=== PATIENT | male | born 1985 | race Caucasian/White ===

== ENCOUNTER 2025-01-05 07:20 | Emergency (ER) | payer OTHER, SELFPAY ==
[2025-01-05 07:29] VITALS: BP 141/96; BP 168/98; PULSE 102; PULSE 88; RESP 16; TEMP 36.6; O2SAT 96; BMI 35.9
--- NOTE | 2025-01-05 07:58 | ECG_ITS ---
Test Reason : palpitations Blood Pressure : */* mmHG Vent. Rate : 80 BPM Atrial Rate : 80 BPM P-R Int : 144 ms QRS Dur : 86 ms QT Int : 362 ms P-R-T Axes : 52 37 30 degrees QTcB Int : 417 ms Normal sinus rhythm Normal ECG No previous ECGs available Referred By: Darek Wallace Electronically Signed By: BRYAN STUART
--- OUTSIDE RECORDS SUMMARY | 2025-01-05 08:01 | XMS_ITS | Encounter Summary ---
Author Organization [facility] Address [address] [place] [address] Care Team Providers Care Well Drill Operator Name Role Phone Sherwin Ledbetter MD Primary Care Provider Reason for Visit * Reason Onset Date Comments Referral 12/29/2024 Encounter Details Date Type Department Care Team (Late st Contact Info) Description 12/29/2024 Telephone Gastroenterology - [place] [address] [place] [address] Lena Pritchard MA Social History Tobacco Use Types Packs/Day Years Used Date Smoking Tobacco: Former Cigarettes Smokeless Tobacco: Former Alcohol Use Standard Drinks/Week Comments Yes 5 (1 standard drink = 0.6 oz pur e alcohol) occ Housing Instability Answer Date Recorde d Are you worried that in the next 2 months you may not have stable housing? No 11/02/2024 Food Access & Nutrition Answer Date Rec orded Do you have access to a vari ety of food including fruits and vegetables? Yes 11/02/2024 Access to Healthcare Answer Date Record ed Within the last 3 months, ho w many times did you visit the emergency department for your medical care? 0 11/02/2024 Health Literacy Answer Date Recorded How often do you need to hav e someone help you when you read instructions, pamphlets, or other written material from your doctor or pharmacy? Never 11/02/2024 Caregiver: How often do you need to have someone help you when you read instructions, pamphlets, or other written material from your doctor or pharmacy? Not on file 11/02/2024 Financial Risk Answer Date Recorded How hard is it for you to pa y for the very basics like food, housing, medical care, and air conditioning / heating? Not very hard 11/02/2024 Transportation Answer Date Recorded Has the lack of transportati on kept you from meetings, work, or from getting things needed for daily living? No Has the lack of transportati on kept you from medical appointments or from getting medications? No 11/02/2024 Social Isolation Answer Date Recorded How often do you feel lonely or isolated from th ose around you? Never 11/02/2024 Food Risk Answer Date Recorded Within the past 12 months we worried whether our food would run out before we got money to buy more. Never true 11/02/2024 Within the past 12 months th e food we bought just didn't last and we didn't have money to get more. Never true 11/02/2024 Dependent Care Answer Date Recorded Do you need help finding or paying for care for your loved ones. For example, registered nurse maternal child or elderly care for an older adult? No 11/02/2024 Education Answer Date Recorded Do you think completing more education or training, like finishing a GED, going to college, or learning a trade, would be helpful for you? No 11/02/2024 Employment and Income Answer Date Recor ded During the last four weeks, have you been actively looking for work? No 11/02/2024 Living Situation Answer Date Recorded What is your living situation? 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 I offered pt Fang's 01/10 slot, pt stated his pcp prescribed him some medication and he wants to see if it would work first, he will call back to scheduleif it does not work. * Lena Pritchard MA - 01/01/2025 8:15 AM EDT Noted. Will update referral * ANTOINE Smith - 12/30/2024 3:00 PM EDT Ideally yes would be good to see him sooner as he has a hx of treatment failure * Lena Pritchard MA - 12/29/2024 3:33 PM EDT Hi, We received a request to schedule this patient for h pylori urgently but it appears you are treating him for it, he is schedule to see our office in May, does he need to be seen prior to May since you are already treating him? documented in this encounter Plan of Treatment Upcoming Encounters Date Type Department Care Team (Late st Contact Info) Description 05/11/2025 11:20 AM EST Consult Gastroenterology - [place] [address] [phone] Fang Alford NP [address] [facility] [address] [place] [address] 11/06/2025 3:00 PM EDT Office Visit Adult Medicine [address] [phone] Ronald Matthews PA [address] [place] [address] documented as of this encounter Visit Diagnoses Not on filedocumented in this encounter Additional Health Concerns Assessment Noted Time PHQ-9 Depression Total Score: 1 11/03/19 25 4:24 PM EDT documented as of this encounter Care Teams Well Drill Operator Relationship Specialty Start Date End Date Sherwin Ledbetter MD [address] [place] [address] PCP - General 07/13/23 documented as of this encounter
--- OUTSIDE RECORDS SUMMARY | 2025-01-05 08:01 | XMS_ITS | Clinical Summary ---
Author Organization [facility] [address] [facility] Address [address] [place] [address] Phone Care Team Providers Care Turn Supervisor Name Role Phone Sherwin Ledbetter MD Primary Care Provider Allergies No known active allergies Medications methadone (DOLOPHINE) 10 mg/5 mL solution 57.5 mL (115 mg total). 04/24/2021 Active tirzepatide, weight loss, (Zepbound) 7.5 mg/0.5 mL injectionIndica tions:H. pylori infection Inject 0.5 mL (7.5 mg total) under the skin every 7 (seven) days. 6 mL 3 11/21/2024 Active bismuth-metroNI DAZOLE-tetracyc line (Pylera) 140-125-125 mg per capsule Take 3 capsules by mouth 4 (four) times a day (before meals and nightly) for 14 days. Follow each dose with 8 oz of water. 168 capsule 12/29/2024 01/13/20 25 Active omeprazole (PriLOSEC) [address] capsule Take 1 capsule (20 mg total) by mouth 2 (two) times a day. Do not crush or chew. 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 Heroin use 01/02/2015 Opiate abuse, episodic ([facility] V24, [facility] V28 ) 01/02/2015 Panic disorder 01/02/2015 Encounters Date Type Department Care Team Description 12/29/2024 Telephone Gastroenterology - [place] [address] [place] [address] Lena Pritchard [place] 12/27/2024 Telephone Adult Medicine [address] [phone] Sherwin Ledbetter MD 11/03/2024 3:00 PM EDT Office Visit Adult Medicine [address] [phone] Ronald Matthews PA Routine general medical examination at a health care facility (Primary Dx); Abdominal pain, unspecified abdominal location; Low testosterone; Anxiety; Methadone use; Vitamin D deficiency; Panic disorder; Elevated total protein 10/10/2024 Telephone Adult Medicine [address] [phone] Sherwin Ledbetter MD from Last 3 Months Immunizations Immunization Administration Dates Next Due Tdap Tetanus diptheria acell ular pertussis (Boostrix; Adacel) 7yo and older 10/04/2024,08/03/2012 Surgical History Surgery Date Site/Laterality Comments WISDOM TOOTH EXTRACTION PROCEDURE: HISTORICAL WISDOM TEETH EXTRACTION Medical History Medical History Date Comments Opiate abuse, episodic ([facility] V24, [facility] V28) 01/02/2015 DX:Opiate abuse, episodic ([facility]) 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 For example, child care worker or elderly care for an older adult? 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 Not on file No t on file Obstetrics History Last Filed Vital Signs Vital Sign Reading Time Taken Comments Blood Pressure 113/75 11/03/2024 2:48 PM EDT Pulse 73 11/03/2024 2:48 PM EDT Temperature 36.3 C (97.4 F) 11/03/2024 2:48 PM EDT Respiratory Rate 16 11/03/2024 2:48 PM EDT Oxygen Saturation 96% 11/03/2024 2:48 PM EDT Inhaled Oxygen Concentration - - Weight 107 kg (235 lb) 11/03/2024 2:48 PM EDT Height 171.5 cm (5' 7.5 ) 11/03/2024 2:48 PM EDT Body Mass Index 36.26 11/03/2024 2:48 PM EDT Plan of Treatment Upcoming Encounters Date Type Department Care Team (Late st Contact Info) Description 05/11/2025 11:20 AM EST Consult Gastroenterology - [place] [address] [phone] Fang Alford NP 175 [facility] [address] [place] [address] 11/06/2025 3:00 PM EDT Office Visit Adult Medicine [address] [phone] Ronald Matthews PA [address] [place] [phone] Health Maintenance Due Date Last Done Comments Hepatitis A Vaccines (1 of 2 - Risk 2-dose series) 11/18/2002 Hepatitis B Vaccines (1 of 3 - 19+ 3-dose series) 11/18/2002 HPV Vaccines (1 - 3-dose SCD M series) 11/18/2010 COVID-19 Vaccine (2 - 2024-2 6 season) 2024 11/04/2020 Influenza Vaccine (#1) 2024 Social Influencers of Health Screening 11/02/2025 11/02/2024 Cholesterol Screening (Lipid Panel) 10/04/2029 10/04/2024 DTaP,Tdap,and Td Vaccines (4 - Td or Tdap) 10/04/2034 10/04/2024, 08/20/2012, 08/03/2012 RSV Immunization Adult Patients (1 - 1-dose 75+ series) 11/18/2058 HIV Screening Completed 10/04/2024 Hepatitis C Screening Completed 10/04/2024 Depression Screening Completed 11/02/2024 HIB Vaccines Aged Out No longer eligi ble based on patient's age to complete this topic IPV Vaccines Aged Out No longer eligi ble based on patient's age to complete this topic MMR Vaccines Aged Out No longer eligi ble based on patient's age to complete this topic Meningococcal ACWY Vaccine Aged Out N o longer eligible based on patient's age to complete this topic Meningococcal B Vaccine Aged Out No l onger eligible based on patient's age to complete this topic Pneumococcal Vaccine: Pediatrics (0 to 5 Years) and At-Risk Patients (6 to 49 Years) Aged Out No longer eligible b ased on patient's age to complete this topic RSV Immunization Patients Under 20 months Aged Out No longer eligible b ased on patient's age to complete this topic Varicella Vaccines Aged Out No longer eligible based on patient's age to complete this topic Procedures Procedure Name Priority Date/Time Associated Diagnosis Comments DC PROTEIN ELECTROPHORETIC FRACTIONATION & QUANTITATION SERUM Routine 12/28/2024 1:49 PM EDT Elevated total protein PROTEIN, TOTAL Routine 12/28/2024 1:49 PM EDT Elevated total protein CBC WITH AUTO DIFFERENTIAL Routine 12/28/2024 1:49 PM EDT Routine general medical examination at a health care facility Abdominal pain, unspecified abdominal location Low testosterone KAPPA-LAMBDA QUANTITATIVE FREE LIGHT CHAINS Routine 12/28/2024 1:49 PM EDT Elevated total protein PROTEIN ELECTROPHORESIS, SERUM Routine 12/28/2024 1:49 PM EDT Elevated total protein VITAMIN D 25 HYDROXY Routine 12/28/2024 1:49 PM EDT Vitamin D deficiency CBC AND DIFFERENTIAL Routine 12/28/2024 1:49 PM EDT Routine general medical examination at a health care facility Abdominal pain, unspecified abdominal location Low testosterone COMPREHENSIVE METABOLIC PANEL Routine 12/28/2024 1:49 PM EDT Routine general medical examination at a health care facility Abdominal pain, unspecified abdominal location Low testosterone IMMUNOGLOBULINS IGG, IGA, IGM Routine 12/28/2024 1:49 PM EDT Routine general medical examination at a [facility] care facility Abdominal pain, unspecified abdominal location Low testosterone FOLLICLE STIMULATING HORMONE Routine 12/28/2024 1:49 PM EDT Routine general medical examination at a [facility] medical [facility] care facility Abdominal pain, unspecified abdominal location Low testosterone LIPASE Routine 12/28/2024 1:49 PM EDT Routine general medical examination at a [facility] medical [facility] care facility Abdominal pain, unspecified abdominal location Low testosterone HELICOBACTER PYLORI BREATH TEST Routine 12/28/2024 1:49 PM EDT H. pylori infection DC PROTEIN ELECTROPHORETIC FRACTIONATION & QUANTITATION SERUM Routine 11/03/2024 4:07 PM EDT Routine general medical examination at a health care facility Abdominal pain, unspecified abdominal location Low testosterone DC IMMUNOFIXATION ELECTROPHORESIS SERUM Routine 11/03/2024 4:07 PM EDT Routine general medical examination at a health care facility Abdominal pain, unspecified abdominal location Low testosterone PROTEIN, TOTAL Routine 11/03/2024 4:07 PM EDT Routine general medical examination at a health care facility Abdominal pain, unspecified abdominal location Low testosterone IMMUNOFIXATION ELECTROPHORESIS Routine 11/03/2024 4:07 PM EDT Routine general medical examination at a health care facility Abdominal pain, unspecified abdominal location Low testosterone IMMUNOFIXATION ELECTROPHORESIS Routine 11/03/2024 4:07 PM EDT Routine general medical examination at a health care facility Abdominal pain, unspecified abdominal location Low testosterone PROTEIN ELECTROPHORESIS, SERUM Routine 11/03/2024 4:07 PM EDT Routine general medical examination at a health care facility Abdominal pain, unspecified abdominal location Low testosterone HELICOBACTER PYLORI BREATH TEST Routine 11/03/2024 4:07 PM EDT Routine general medical examination at a health care facility Abdominal pain, unspecified abdominal location Low testosterone HEPATITIS C ANTIBODY Routine 10/04/2024 1:09 PM EDT Need for hepatitis C screening test HIV 1, 2 ANTIBODY, P24 ANTIGEN WITH REFLEX TO DIFFERENTIATION Routine 10/04/2024 1:09 PM EDT Screening for HIV (human immunodeficiency virus) LIPID PANEL WITH REFLEX TO DIRECT LDL Routine 10/04/2024 1:09 PM EDT Screening for deficiency anemia from Last 3 Months or Most Recently Relevant to Health Maintenance Results * PATHOLOGIST REVIEW PROTEIN ELECTROPHORESIS (12/28/2024 1:49 PM EDT) Only the most recent of2 resultswithin the time period is included. Pathologist Interpretation Rashida Lindo MD 01/01/2025 2:44 PM EDT [facility] Blood Venous blood specimen / Unknown Venipuncture / Unknown 12/28/2024 1:49 PM EDT 12/28/2024 1:49 PM EDT us Claudia Davon PA LAB BLOOD ORDERABLES Final Resul t [facility] [address] [place] [address], [place] [phone] * [place]-lambda free light chains, quantitative (12/28/2024 1:49 PM EDT) [place] Free Light Chain 1.78 0.33 - 1.94 mg/dL 01/01/2025 12:36 PM EDT [facility] Lambda Free Light Chain 1.98 0.57 - 2.63 mg/dL 01/01/2025 12:36 PM EDT [facility] [place]/Lambda FLC Ratio 0.90 0.26 - 1.65 01/01/2025 12:36 PM EDT [facility] Comment: Test performed at [facility], [address], [place], [place] [id number] Mary Echavarria MD, PhD - Stick Welder Blood Venous blood specimen / Unknown Venipuncture / Unknown 12/28/2024 1:49 PM EDT 12/28/2024 1:49 PM EDT us Claudia Davon SCHULTZ LAB BLOOD ORDERABLES Final Resul t [facility] [address] [place] [address] * CBC auto differential (12/28/2024 1:49 PM EDT) Pathologist [facility] WBC 6.8 4.8 - 10.8 K/mcL LAB HEMETOLOGY METHOD 12/28/2024 4:47 PM EDT [facility] RBC 4.50 4.50 - 5.50 M/mcL LAB HEMETOLOGY METHOD 12/28/2024 4:47 PM EDT [facility] Hemoglobin 14.4 13.5 - 17.5 g/dL LAB HEMETOLOGY METHOD 12/28/2024 4:47 PM EDT [facility] Hematocrit 43.2 42.0 - 54.0 % LAB HEMETOLOGY METHOD 12/28/2024 4:47 PM EDT [facility] MCV 95.4 79.0 - 98.0 FL LAB HEMETOLOGY METHOD 12/28/2024 4:47 PM EDT [facility] MCH 31.8 27.0 - 32.0 pcg LAB HEMETOLOGY METHOD 12/28/2024 4:47 PM [facility] MCHC 33.3 32.0 - 37.0 g/dL LAB HEMETOLOGY METHOD 12/28/2024 4:47 PM [facility] RDW 12.8 11.0 - 15.0 % LAB HEMETOLOGY METHOD 12/28/2024 4:47 PM [facility] Platelets 219 130 - 400 K/mcL LAB HEMETOLOGY METHOD 12/28/2024 4:47 PM [facility] MPV 9.9 7.0 - 11.0 FL LAB HEMETOLOGY METHOD 12/28/2024 4:47 PM [facility] NRBC 0.0 <1.0 % LAB HEMETOLOGY METHOD 12/28/2024 4:47 PM [facility] NRBC Absolute 0.00 <0.10 K/mcL LAB HEMETOLOGY METHOD 12/28/2024 4:47 PM [facility] Neutrophils Relative 56.7 % LAB HEMETOLOGY METHOD 12/28/2024 4:47 PM [facility] Lymphocytes Relative 34.0 % LAB HEMETOLOGY METHOD 12/28/2024 4:47 PM [facility] Monocytes Relative 7.6 % LAB HEMETOLOGY METHOD 12/28/2024 4:47 PM [facility] Eosinophils Relative 1.0 % LAB HEMETOLOGY METHOD 12/28/2024 4:47 PM [facility] Basophils Relative 0.4 % LAB HEMETOLOGY METHOD 12/28/2024 4:47 PM [facility] Immature Granulocytes Relative 0.3 % LAB HEMETOLOGY METHOD 12/28/2024 4:47 PM EDT [facility] Neutrophils Absolute 3.86 1.50 - 7.00 K/mcL LAB HEMETOLOGY METHOD 12/28/2024 4:47 PM EDT [facility] Lymphocytes Absolute 2.32 1.00 - 5.00 K/mcL LAB HEMETOLOGY METHOD 12/28/2024 4:47 PM EDT [facility] Monocytes Absolute 0.52 0.20 - 1.00 K/mcL LAB HEMETOLOGY METHOD 12/28/2024 4:47 PM EDT [facility] Eosinophils Absolute 0.07 0.00 - 0.50 K/mcL LAB HEMETOLOGY METHOD 12/28/2024 4:47 PM EDT [facility] Basophils Absolute 0.03 0.00 - 0.20 K/mcL LAB HEMETOLOGY METHOD 12/28/2024 4:47 PM EDT [facility] Immature Granulocytes Absolute 0.02 0.00 - 0.03 K/mcL LAB HEMETOLOGY METHOD 12/28/2024 4:47 PM EDT [facility] Blood Venous blood specimen / Unknown Venipuncture / Unknown 12/28/2024 1:49 PM EDT 12/28/2024 1:49 PM EDT Ronald SCHULTZ LAB BLOOD ORDERABLES Lindsay cosme Result [facility] [address] [place] [address], * (ABNORMAL) Helicobacter pylori breath test (12/28/2024 1:49 PM EDT) Only the most recent of2 resultswithin the time period is included. H Pylori Breath Test Positive( A) Negative LAB CHEMISTRY METHOD 12/29/2024 8:48 AM EDT [facility] Breath Oral cavity structure / Unknown Non-blood Collection / Unknown 12/28/2024 1:49 PM EDT 12/28/2024 1:49 PM EDT Ronald SCHULTZ LAB BODY FLUIDS AND STOOL S ORDERABLES Final Result Performing Organization Address [facility]/ZIP Co de Phone Number [facility] [address] [place] [address], [place] [phone] * (ABNORMAL) Vitamin D 25 hydroxy (12/28/2024 1:49 PM EDT) Pathologist [facility] Vit D, 25-Hydroxy 29.9(L) 30.0 - 80.0 ng/mL LAB CHEMISTRY METHOD 12/28/2024 6:11 PM EDT [facility] Blood Venous blood specimen / Unknown Venipuncture / Unknown 12/28/2024 1:49 PM EDT 12/28/2024 1:49 PM EDT Claudia SCHULTZ LAB BLOOD ORDERABLES Final Resul t Performing Organization Address [facility]/ZIP Co de Phone Number [facility] [address] [place] [address], [place] [phone] * (ABNORMAL) Immunoglobulins IgG, IgA, IgM (12/28/2024 1:49 PM EDT) Total IgG 1,200 549 - 1,584 mg/dL LAB CHEMISTRY METHOD 12/28/2024 7:33 PM EDT [facility] IgA 374(H) 61 - 348 mg/dL LAB CHEMISTRY METHOD 12/28/2024 7:33 PM EDT [facility] IgM 117 23 - 259 mg/dL LAB CHEMISTRY METHOD 12/28/2024 7:33 PM EDT [facility] Blood Venous blood specimen / Unknown Venipuncture / Unknown 12/28/2024 1:49 PM EDT 12/28/2024 1:49 PM EDT Ronald SCHULTZ LAB BLOOD ORDERABLES Lindsay l Result [facility] [address] [place] [address], [place] [phone] * Protein electrophoresis, serum (12/28/2024 1:49 PM EDT) Only the most recent of2 resultswithin the time period is included. Total Protein 7.9 6.0 - 8.0 g/dL LAB CHEMISTRY METHOD 01/01/2025 2:44 PM EDT [facility] Albumin, Serum 3.9 2.9 - 4.1 g/dL LAB CHEMISTRY METHOD 01/01/2025 2:44 PM EDT [facility] Alpha 1 Globulin (g/dL) 0.2 0.1 - 0.5 g/dL LAB CHEMISTRY METHOD 01/01/2025 2:44 PM EDT [facility] Alpha 2 Globulin (g/dL) 1.2 0.7 - 1.5 g/dL LAB CHEMISTRY METHOD 01/01/2025 2:44 PM EDT [facility] Beta (g/dL) 1.2 0.7 - 1.5 g/dL LAB CHEMISTRY METHOD 01/01/2025 2:44 PM EDT [facility] Gamma Globulin (g/dL) 1.3 0.7 - 1.9 g/dL LAB CHEMISTRY METHOD 01/01/2025 2:44 PM EDT [facility] SPEP Interpretation Essentially normal pattern. No M-Ernesto seen. LAB CHEMISTRY METHOD 01/01/2025 2:44 PM EDT [facility] Blood Venous blood specimen / Unknown Venipuncture / Unknown 12/28/2024 1:49 PM EDT 12/28/2024 1:49 PM EDT Claudia SCHULTZ LAB BLOOD ORDERABLES Final Resul t [facility] [address] [place] [address], * Protein, total (12/28/2024 1:49 PM EDT) Only the most recent of2 resultswithin the time period is included. Total Protein 7.9 6.0 - 8.0 g/dL LAB CHEMISTRY METHOD 12/28/2024 10:05 PM EDT [facility] Blood Venous blood specimen / Unknown Venipuncture / Unknown 12/28/2024 1:49 PM EDT 12/28/2024 1:49 PM EDT Claudia SCHULTZ LAB BLOOD ORDERABLES Final Resul t Performing Organization Address [facility] Co de Phone Number [facility] [address] [place] [address], * Lipase (12/28/2024 1:49 PM EDT) Pathologist [facility] Lipase 24 13 - 75 unit/L LAB CHEMISTRY METHOD 12/28/2024 7:15 PM EDT [facility] Blood Venous blood specimen / Unknown Venipuncture / Unknown 12/28/2024 1:49 PM EDT 12/28/2024 1:49 PM EDT Ronald SCHULTZ LAB BLOOD ORDERABLES Lindsay l Result Performing Organization Address [facility]/ZIP Co de Phone Number [facility] [address] [place] [address], * (ABNORMAL) Follicle stimulating hormone (12/28/2024 1:49 PM EDT) Follicle Stimulating Hormone <0.2(L) 0.7 - 10.8 mIU/mL LAB CHEMISTRY METHOD 12/28/2024 7:34 PM EDT [facility] Blood Venous blood specimen / Unknown Venipuncture / Unknown 12/28/2024 1:49 PM EDT 12/28/2024 1:49 PM EDT Ronald SCHULTZ LAB BLOOD ORDERABLES Lindsay l Result [facility] [address] [place] [address], * (ABNORMAL) Comprehensive metabolic panel (12/28/2024 1:49 PM EDT) Sodium 133 133 - 145 mmol/L LAB CHEMISTRY METHOD 12/28/2024 7:33 PM [facility] Potassium 4.5 3.5 - 5.5 mmol/L LAB CHEMISTRY METHOD 12/28/2024 7:33 PM [facility] Chloride 101 96 - 110 mmol/L LAB CHEMISTRY METHOD 12/28/2024 7:33 PM [facility] CO2 27 21 - 32 mmol/L LAB CHEMISTRY METHOD 12/28/2024 7:33 PM [facility] Anion Gap 5 3 - 11 LAB CHEMISTRY METHOD 12/28/2024 7:33 PM [facility] Glucose 97 70 - 100 mg/dL LAB CHEMISTRY METHOD 12/28/2024 7:33 PM [facility] BUN 26(H) 5 - 25 mg/dL LAB CHEMISTRY METHOD 12/28/2024 7:33 PM [facility] Creatinine 0.89 0.70 - 1.30 mg/dL LAB CHEMISTRY METHOD 12/28/2024 7:33 PM [facility] eGFR 110 >=60 mL/min/1. 73m2 LAB CHEMISTRY METHOD 12/28/2024 7:33 PM [facility] Comment:Calculation based on the Chronic Kidney Disease Epidemiology Collaboration (CKD-EPI) equation refit without adjustment for race. BUN/Creatinine Ratio 29.2 LAB CHEMISTRY METHOD 12/28/2024 7:33 PM EDT [facility] Calcium 9.5 8.5 - 10.5 mg/dL LAB CHEMISTRY METHOD 12/28/2024 7:33 PM EDT [facility] AST (SGOT) 28 10 - 42 unit/L LAB CHEMISTRY METHOD 12/28/2024 7:33 PM EDT [facility] ALT (SGPT) 36 10 - 60 unit/L LAB CHEMISTRY METHOD 12/28/2024 7:33 PM EDT [facility] Alkaline Phosphatase 95 42 - 121 unit/L LAB CHEMISTRY METHOD 12/28/2024 7:33 PM EDT [facility] Total Protein 7.9 6.0 - 8.0 g/dL LAB CHEMISTRY METHOD 12/28/2024 7:33 PM EDT [facility] Albumin 4.2 3.2 - 5.0 g/dL LAB CHEMISTRY METHOD 12/28/2024 7:33 PM EDT [facility] Total Bilirubin 0.4 0.0 - 1.4 mg/dL LAB CHEMISTRY METHOD 12/28/2024 7:33 PM EDT [facility] Blood Venous blood specimen / Unknown Venipuncture / Unknown 12/28/2024 1:49 PM EDT 12/28/2024 1:49 PM EDT us Ronald SCHULTZ LAB BLOOD ORDERABLES Lindsay l Result [facility] [address] [place] [address], * Pathologist Review Immunofixation (11/03/2024 4:07 PM EDT) Pathologist Interpretation 11/08/2024 6:21 PM EDT [facility] Blood Venous blood specimen / Unknown Venipuncture / Unknown 11/03/2024 4:07 PM EDT 11/03/2024 4:07 PM EDT Ronald SCHULTZ LAB BLOOD ORDERABLES Lindsay l Result Performing Organization Address [facility]/ZIP Co de Phone Number [facility] [address] [place] [address], [place] [phone] * Immunofixation electrophoresis serum (11/03/2024 4:07 PM EDT) [facility] Immunofixation Result, Serum No monoclonal immunoglobulins detected. LAB CHEMISTRY METHOD 11/08/2024 6:21 PM EDT [facility] Blood Venous blood specimen / Unknown Venipuncture / Unknown 11/03/2024 4:07 PM EDT 11/03/2024 4:07 PM EDT Ronald SCHULTZ LAB BLOOD ORDERABLES Lindsay l Result Performing Organization Address [facility] Co de Phone Number [facility] [address] [place] [address], [place] [phone] * Hepatitis C antibody (10/04/2024 1:09 PM EDT) [facility] Hepatitis C Antibody Negative Negative LAB CHEMISTRY METHOD 10/04/2024 6:47 PM EDT [facility] Blood Venous blood specimen / Unknown Venipuncture / Unknown 10/04/2024 1:09 PM EDT 10/04/2024 1:09 PM EDT Claudia SCHULTZ LAB BLOOD ORDERABLES Final Resul t Performing Organization Address [facility]/ZIP Co de Phone Number [facility] [address] [place] [address], [place] [phone] * HIV 1,2 antibody, p24 antigen with reflex to differentiation (10/04/2024 1:09 PM EDT) [facility] HIV Combo AB/AG Negative Negative LAB CHEMISTRY METHOD 10/04/2024 6:47 PM EDT [facility] Blood Venous blood specimen / Unknown Venipuncture / Unknown 10/04/2024 1:09 PM EDT 10/04/2024 1:09 PM EDT Narrative [facility] - 10/04/2024 6:47 PM EDT This assay is a 4th generation assay allowing for earlier detection of HIV infection by detecting the presence of the HIV-1 p24 antigen as well as the traditional antibodies to HIV type 1 (including group O) and type 2. Use of a 4th generation assay is the current CDC recommendation for HIV screening. us Claudia Davon PA LAB BLOOD ORDERABLES Final Resul t [facility] [address] [place] [address], * (ABNORMAL) Lipid panel with reflex to direct LDL (10/04/2024 1:09 PM EDT) [facility] Cholesterol 257(H) 0 - 200 mg/dL LAB CHEMISTRY METHOD 10/04/2024 5:56 PM EDT [facility] Triglycerides 192(H) 0 - 150 mg/dL LAB CHEMISTRY METHOD 10/04/2024 5:56 PM EDT [facility] HDL 63 >=40 mg/dL LAB CHEMISTRY METHOD 10/04/2024 5:56 PM EDT [facility] LDL Calculated 156(H) 0 - 100 mg/dL LAB CHEMISTRY METHOD 10/04/2024 5:56 PM EDT [facility] VLDL Cholesterol Thony 38.4 mg/dL LAB CHEMISTRY METHOD 10/04/2024 5:56 PM EDT [facility] Non HDL Chol. (LDL+VLDL) 194(H) <145 mg/dL LAB CHEMISTRY METHOD 10/04/2024 5:56 PM EDT [facility] Chol/HDL Ratio 4.1 0.0 - 4.4 LAB CHEMISTRY METHOD 10/04/2024 5:56 PM EDT [facility] Blood Venous blood specimen / Unknown Venipuncture / Unknown 10/04/2024 1:09 PM EDT 10/04/2024 1:09 PM EDT us Claudia Davon PA LAB BLOOD ORDERABLES Final Resul t [facility] [address] [place] [address], from Last 3 Months or Most Recently Relevant to Health Maintenance [facility] [place] [place] [facility] Care Teams Turn Supervisor Relationship Specialty Start Date End Date Sherwin Ledbetter MD [address] [place] [address] PCP - General 07/13/23
--- OUTSIDE RECORDS SUMMARY | 2025-01-05 08:01 | XMS_ITS ---
Author Name [facility] Organization Unknown Care Team Organization Name Specialty Phone Email Start Date End Da te [facility] Magdalena Nance MD Primary Care 02/10/2022 11/22/2023
[2025-01-05 08:34] LABS: Hematocrit 41.3 % (42.0-52.0); Hemoglobin 13.8 g/dl (14.0-18.0); Imm Gran Abs Auto 0.01 X10*3/uL (0.00-0.03); Imm Gran Pct Auto 0.2 % (0.0-0.4); Lymphocytes Absolute Auto 1.7 X10*3/uL (1.2-4.9); MANUAL DIFF FLAG SCAN; Mean Corpuscular HGB Conc 33.4 g/dl (31.0-36.0); Mean Corpuscular Hemoglobin 32.2 pg (27.0-33.0); Mean Corpuscular Volume 96.3 fL (80.0-98.0); NRBC Abs Auto 0.000 X10*3/uL (0.0-0.012); NRBC Pct Auto 0.0 /100WBC (0.0-0.2); PLT CLUMP 1; Red Blood Count 4.29 X10*6/uL (4.60-5.80); SCAN SMEAR FLAG 1
[2025-01-05 08:38] LABS: White Blood Count 4.7 X10*3/uL (4.8-10.8)
[2025-01-05 08:55] LABS: Alanine Aminotransferase 51 U/L (0-40); Albumin Level 4.2 g/dL (3.5-5.0); Alkaline Phosphatase 72 U/L (39-117); Anion Gap 15 (12-20); Aspartate Amino Transferase 50 U/L (5-37); Blood Urea Nitrogen 21 mg/dL (9-16); Calcium 9.3 mg/dL (8.4-10.2); Carbon Dioxide 22 mmol/L (22-29); Chloride 106 mmol/L (96-108); Creatinine Clr Calc Pharmacy 147.7; Estimated Glomerular Filt Rate > 60; Magnesium 2.5 mg/dL (1.6-2.6); Potassium 5.0 mmol/L (3.3-5.1); Sodium 138 mmol/L (135-145); Total Protein 7.7 g/dL (6.5-8.0)
[2025-01-05 08:56] LABS: Platelet Count 165 X10*3/uL (160-400)
[2025-01-05 08:57] LABS: Troponin-I High Sensitivity < 2.7 ng/L (<3.5-35.0)
[2025-01-05 10:37] VITALS: BP 121/88; PULSE 90; RESP 18; O2SAT 96
[2025-01-05 10:51] LABS: Appearance Urine Clear; Glucose Urine UA Negative (Negative); PH 7.0 (5.0-9.0); Specific Gravity - Urine 1.010 (1.005-1.025)
[2025-01-05 11:02] LABS: Cannabinoid Screen Urine Not Detected (Not Detect)
[2025-01-05 11:10] LABS: Troponin-I High Sensitivity < 2.7 ng/L (<3.5-35.0)
--- NOTE | 2025-01-05 11:16 | ED_ITS ---
HPI - General Adult General Chief complaint: Arrhythmia/Palpitations Stated complaint: HEROIN USE, HIGH HEART RATE PER EMS Time Seen by Provider: 01/05/25 11:21 Source: patient and EMS Mode of arrival: EMS Limitations: no limitations History of Present Illness ED Provider: ANTOINE Wallace HPI narrative: This is a 39-year-old male history of opiate use disorder on maintenance methadone who presents to the emergency department with palpitations status post using 3-4 bags of heroin. He reports he was feeling fine and wanted to take himself off of methadone he last had it 4-5 days ago. However he relapsed and used heroin last night and this morning. He tells me after using he started having palpitations which have since resolved. He wanted to make sure that his heart was okay. Denies associated shortness of breath. No suicidal or homicidal ideation. Denies fevers, chills, headache, vision changes, dizziness and weakness. Related Data Allergies Allergy/AdvReac Type Severity Reaction Status Date / Time acetaminophen (ACETAMINOPHEN) Allergy Unknown BREATHING Verified 01/05/25 07:32 PROBLEM Review of Systems 2 Review of Systems: Yes all other systems are reviewed and are negative [facility] Past Medical History Attestation statement: The following information was validated with the patient. Source: old records reviewed and nursing notes reviewed Social History Social History Smoked in Last 30 Days: No Use of substances other than those prescribed or required for medical reasons: Yes Substance Use Type: Heroin Substance Use Frequency: Recent Binge Advance Directives: No Advance Directives Information Provided: No Do you have a plan to hurt others: No Plan Physical Exam ED Exam Exam: Appearance: Alert.? Oriented X3.? No acute distress.? Head: Normocephalic, atraumatic, no step-offs or deformities Eyes: Pupils equal, round and reactive to light.? ENT: Pharynx normal.? Neck: Normal inspection.? Neck supple.? CVS: Normal heart rate and rhythm.? Pulses normal.? Respiratory: No respiratory distress.? Breath sounds normal.? Abdomen: Soft and nontender.? Skin: Skin warm and dry.? Normal skin color.? Normal skin turgor.? Extremities: No lower extremity edema.? No calf ttp. 5/5 strength to bilateral upper and lower extremities Neuro: Oriented X 3.? No motor deficit.? No sensory deficit. CN 2-12 intact Vital Signs: Vital Signs - 24 hr 01/05/25 07:29 01/05/25 10:37 01/05/25 12:00 Temperature 97.9 F 98.1 F Pulse Rate 88 90 89 Respiratory Rate 16 18 15 Blood Pressure 141/96 H 121/88 112/62 Pulse Oximetry 96 96 98 Oxygen Delivery Method Room Air Room Air Room Air BMI result Body Mass Index 35.9 vss Course Reevaluation(s) Reevaluation #1: CBC unremarkable. Normocytic anemia noted likely patient's baseline. Chemistry with no acute findings needing intervention. Troponin negative x2 with a nondiagnostic EKG. UA unremarkable. Urine toxicology positive for opiates, methadone and fentanyl. Time: 11:21 Reevaluation #2: Patient feeling better. He received his methadone. He will follow up with outpatient providers. No chest pain or shortness of breath. Troponin negative x3. Oxygenation normal. I do not suspect PE on this patient again he is PERC negative. Educated patient on diagnosis and treatment plan, answered all question, patient verbalizes understanding. At this time patient will be discharged home, advised to return with new or worsening symptoms. Educated on worrisome signs and symptoms and when to return. At this time I feel comfortable discharge home. Time: 13:28 Medications Administered Discontinued Medications Generic Name Dose Route Start Last Admin Trade Name Dylan PRN Reason Stop Dose Admin Methadone HCl 40 mg 01/05/25 12:39 01/05/25 13:01 Methadone Hcl 20 Mg/2 Ml Oral.Conc PO 01/05/25 12:40 40 mg ONCE ONE Administration Naloxone HCl 8 mg 01/05/25 12:40 01/05/25 13:02 Naloxone Hcl Nasal Take Home 4 Mg [place] NOSTRILALT 01/05/25 12:41 8 mg ONCE ONE Administration Medical Decision Making Medical Decision Making [facility] Narrative: 1116 39-year-old male presents with palpitations status post heroin use. Usually on methadone however tried to take himself off of it last had it 4-5 days ago. Not suicidal not homicidal. Physical exam benign History and physical exam likely drug-induced palpitations. Unlikely ACS, ischemia. Anxiety also playing a role. Will rule out metabolic derangements and electrolyte abnormalities. PERC negative PE unlikley Plan labs, EKG, GOMEZ Differential Diagnosis Differential Diagnoses: The differential diagnosis associated with the presentation includes ( History and physical exam likely drug-induced palpitations. Unlikely ACS, ischemia. Anxiety also playing a role. Will rule out metabolic derangements and electrolyte abnormalities. PERC negative PE unlikley ) Admission/Observation Consideration of admission/observation: Escalation of care including admission/observation considered Lab Data MDM Lab Attestation statement: I reviewed the patient's lab results. 01/05/25 08:27 01/05/25 08:27 Labs: Lab Results 01/05/25 01/05/25 01/05/25 Range/Units 08:27 10:44 12:42 WBC 4.7 L (4.8-10.8) X10*3/uL RBC 4.29 L (4.60-5.80) X10*6/uL Hgb 13.8 L (14.0-18.0) g/dl Hct 41.3 L (42.0-52.0) % MCV 96.3 (80.0-98.0) fL MCH 32.2 (27.0-33.0) pg MCHC 33.4 (31.0-36.0) g/dl RDW 12.9 (11.0-16.0) % Plt Count 165 (160-400) X10*3/uL MPV 10.3 (9.4-12.4) fL Immature Gran % (Auto) 0.2 (0.0-0.4) % Neut % (Auto) 48.2 (45-73) % Lymph % (Auto) 37.0 (20-40) % [place] % (Auto) 11.8 H (2-11) % Eos % (Auto) 1.9 (0-4) % Baso % (Auto) 0.9 (0-2) % Lymph # (Auto) 1.7 (1.2-4.9) X10*3/uL [place] # (Auto) 0.6 (0.1-1.2) X10*3/uL Eos # (Auto) 0.1 (0.0-0.4) X10*3/uL Baso # (Auto) 0.0 (0.0-0.2) X10*3/uL Abs Immat Gran (auto) 0.01 (0.00-0.03) X10*3/uL Absolute Neuts (auto) 2.3 (2.0-8.3) x10*3/uL Absolute Nucleated RBC 0.000 (0.0-0.012) X10*3/uL Nucleated RBC % (auto) 0.0 (0.0-0.2) /100WBC Smear Tech's Comments VERIFIED Sodium 138 (135-145) mmol/L Potassium 5.0 (3.3-5.1) mmol/L Chloride 106 (96-108) mmol/L Carbon Dioxide 22 (22-29) mmol/L Anion Gap 15 (12-20) BUN 21 H (9-16) mg/dL Creatinine 0.78 (0.5-1.4) mg/dL Estim Creat Clear Calc 147.7 Estimated GFR > 60 Random Glucose 92 (60-115) mg/dL Calcium 9.3 (8.4-10.2) mg/dL Magnesium 2.5 (1.6-2.6) mg/dL Total Bilirubin 0.4 (0.0-1.0) mg/dL AST 50 H (5-37) U/L ALT 51 H (0-40) U/L Alkaline Phosphatase 72 (39-117) U/L Troponin I High Sens < 2.7 < 2.7 < 2.7 (<3.5-35.0) ng/L Total Protein 7.7 (6.5-8.0) g/dL Albumin 4.2 (3.5-5.0) g/dL Urine Color Yellow Urine Appearance Clear Urine pH 7.0 (5.0-9.0) Ur Specific [place] 1.010 (1.005-1.025) Urine Protein Negative (Neg-Trace) mg/dL Urine Glucose (UA) Negative (Negative) mg/dL Urine Ketones Negative (Negative) mg/dL Urine Blood Negative (Negative) Urine Nitrite Negative (Negative) Ur Leukocyte Esterase Negative (Negative) Urine Opiates Screen POSITIVE H (Not Detect) Ur Buprenorphine Scrn Not Detected (Not Detect) ng/mL Ur Oxycodone Screen Not Detected (Not Detect) ng/mL Urine Methadone Screen Positive H (Not Detect) ng/mL Urine Fentanyl Screen POSITIVE H (Not Detect) Ur Barbiturates Screen Not Detected (Not Detect) Ur Phencyclidine Scrn Not Detected (Not Detect) Ur Amphetamines Screen Not Detected (Not Detect) U Benzodiazepines Scrn Not Detected (Not Detect) Urine Cocaine Screen Not Detected (Not Detect) U Marijuana (THC) Screen Not Detected (Not Detect) Ethyl Alcohol 12 mg/dL Independent Interpretation I performed an independent interpretation of an: EKG (Nondiagnostic for chief complaint) Radiology Impression Discussion of test interpretation with radiology: I have reviewed the radiologist's reading. Independent Historian Clinical information obtained from an independent historian. History obtained from or confirmed by: EMS Chronic Conditions Patient?s care impacted by: Other (JENNA ) Critical Care Time Critical Care Time Critical Care Time: Yes Total Critical Care Time: 35 Attestation: I attest to this time spent taking care of the patient, obtaining history, physical, reviewing labs, imaging, treatment of patients condition +/- specialist/hospitalist consult +/- procedure Discharge Plan Discharge Clinical Impression: Palpitations, Anxiety, Opiate misuse Patient Disposition: Home, Self-Care Instructions: Heart Palpitations (ED), Anxiety (ED), Opioid Use Disorder (ED) Additional Instructions: Take your medications as prescribed. If you were prescribed antibiotics today, it is important that you take your medication to their entirety, do not skip any doses, do not finish them early. Follow-up with your primary care provider this week. Return to the emergency department with new or worsening symptoms. Such as fevers, chills, chest pain, shortness of breath, nausea, vomiting, dizziness, headache, vision changes, lethargy In case of emergency call 911 Referrals: [facility] [Provider Group] Sherwin Ledbetter MD [Primary Care Provider, Internal Medicine] Stand Alone Forms: Work/School Release Print Language: Kyrgyz
[2025-01-05 12:00] VITALS: BP 112/62; PULSE 89; RESP 15; TEMP 36.7; O2SAT 98
[2025-01-05] MEDS: methADONE HCl 20 MG/2 ML ORAL.CONC 40 MG PO (13:01)
[2025-01-05] MEDS: Naloxone HCl Nasal TAKE HOME 4 MG SPRAY 8 MG NOSTRILALT (13:02)
[2025-01-05 13:10] LABS: Troponin-I High Sensitivity < 2.7 ng/L (<3.5-35.0)
[2025-01-05 13:39] VITALS: BP 112/62; PULSE 89; RESP 15; TEMP 36.7; O2SAT 98
== END 2025-01-05 13:47 | disposition home or self-care (01) ==
PROVIDERS: Emergency Medicine; Physician Assistant; Emergency Provider Emergency Medicine; PCP Internal Medicine
DX: R00.2 Palpitations (principal); F41.9 Anxiety disorder, unspecified; F11.20 Opioid dependence, uncomplicated; I49.9 Cardiac arrhythmia, unspecified; D64.9 Anemia, unspecified
CPT/HCPCS: 36415; 80053; 80307; 81003; 83735; 84484; 85025; 93005; 99285

== ENCOUNTER → 2025-01-05 07:58 | Outpatient (BNV) | payer OTHER, SELFPAY | PROVIDERS: Emergency Provider Emergency Medicine; PCP Internal Medicine; Visit Provider Internal Medicine | DX: R00.2 Palpitations (principal) | CPT/HCPCS: 93010 ==